=== PATIENT | female | born 1960 | race Caucasian/White ===

== ENCOUNTER → 2016-07-01 | Outpatient (CLI) | payer OTHER | LOC: BRMIMAGING 11:23 | PROVIDERS: ATTEND Physician Assistant Medical | DX: M16.0 Bilateral primary osteoarthritis of hip (principal) | CPT/HCPCS: 73521-PO ==

== ENCOUNTER → 2017-02-16 | Outpatient (CLI) | payer OTHER | LOC: BRMIMAGING 10:47 | PROVIDERS: ATTEND Family Medicine | DX: Z12.31 Encounter for screening mammogram for malignant neoplasm of breast (principal) | CPT/HCPCS: G0202 ==

== ENCOUNTER → 2018-08-13 | Outpatient (CLI) | payer BC, OTHER | LOC: BRMIMAGING 10:52 ==